=== PATIENT | male | born 1990 | race African-American/Black ===

== ENCOUNTER 2025-01-06 20:37 | Emergency (ER) | payer SELFPAY ==
[2025-01-06 21:32] LABS: #Basophils 0.2 thou/uL (0.0-0.2); #Eosinophils 0.1 thou/uL (0.0-0.7); #Lymphocytes 0.4 thou/uL (1.20-3.40); #Monocytes 0.3 thou/uL (0.11-0.59); #Neutrophils 4.8 thou/uL (1.40-6.50); %Basophils 3.6 % (0.0-1.0); %Eosinophils 1.8 % (0.0-10.0); %Lymphocytes 7.1 % (21.0-51.0); %Monocytes 4.4 % (0.0-10.0); %Neutrophils 83.1 % (42.0-75.0); Hematocrit 45.9 % (42.0-52.0); Hemoglobin 15.2 g/dL (14.0-18.0); Mean Corpuscular Hemoglobin 28.0 pg (27.0-31.0); Mean Corpuscular Volume 84.3 fl (78.0-98.0); Platelet Count 331 10x3/uL (130-400); Red Blood Cell (RBC) Count 5.44 mill/uL (4.70-6.10); White Blood Cell (WBC) Count 5.8 10x3/uL (4.8-10.8)
[2025-01-06 21:41] LABS: Acetaminophen Less than 10 mcg/mL (Less than 10); Salicylate Less than 8.0 mg/dL (Less than 8.0)
[2025-01-06 21:45] LABS: ALT (SGPT) 17 U/L (Less than 45); AST (SGOT) 40 U/L (11-34); Albumin 4.4 g/dL (3.1-4.5); Alkaline Phosphatase 64 U/L (40-110); Anion Gap 18 mmol/L (10-20); BUN (Urea Nitrogen) 18 mg/dL (8.9-20.6); Bilirubin, Total 1.1 mg/dL (0.3-1.2); CK (CPK) 696 U/L (30-200); Calc. Creatinine Clearance 0 mL/min (70-130); Calcium 10.2 mg/dL (7.8-10.44); Carbon Dioxide 23 mmol/L (22-29); Chloride 100 mmol/L (98-107); Globulin 3.5 g/dL (2.4-3.5); Glucose 98 mg/dL (70-105); Potassium 4.7 mmol/L (3.5-5.1); Sodium 136 mmol/L (136-145)
== END 2025-01-06 22:58 ==
LOC: NAV ERS 20:37 → EEVIPCON 20:37 → NAV ERS 22:58
DX: F15.10 Other stimulant abuse, uncomplicated (principal); R45.851 Suicidal ideations; F17.210 Nicotine dependence, cigarettes, uncomplicated
CPT/HCPCS: 36415; 80053; 80307; 82550; 85025; 93005; 99285